=== PATIENT | male | born 1955 | race Caucasian/White ===

== ENCOUNTER 2017-01-13 20:41 | Emergency (ER) | payer SELFPAY ==
[2017-01-13 22:28] LABS: BASOPHIL % 0.1 % (0-2); PLATELET COUNT 225 x10^3mcL (130-400); RED CELL DISTRIBUTION WIDTH 13.3 % (11.5-14.5)
[2017-01-13 22:38] LABS: UA SPECIFIC GRAVITY 1.025 (1.005-1.035); microscopic required? YES
[2017-01-13 22:39] LABS: urine erythrocyte 3+ (NEGATIVE)
[2017-01-13 22:40] LABS: CARBON DIOXIDE 27.6 mmol/L (21-32); CREATININE SERUM 1.4 mg/dL (0.7-1.3); POTASSIUM SERUM 4.1 mmol/L (3.5-5.1)
[2017-01-13 22:44] LABS: ALBUMIN 4.2 g/dL (3.4-5.0); BILIRUBIN TOTAL 1.44 mg/dL (0.20-1.00)
[2017-01-14 03:15] VITALS: BP 152/79
== END 2017-01-14 03:15 | disposition home or self-care (01) ==
LOC: ED 20:41
PROVIDERS: Emergency Medicine
DX: N20.0 Calculus of kidney (principal)
CPT/HCPCS: 83880; J1885; J2270; J2405; J7030; J7040